=== PATIENT | male | born 1985 | race African-American/Black ===

== ENCOUNTER 2018-05-11 12:35 | Emergency (ER) | payer OTHER ==
--- NOTE | 2018-05-11 13:35 | ED ---
GI/ HPI - HPI Summary HPI Summary: This pt is a 33 y/o male presenting to [facility] from [facility] for hematuria and bilateral lower abdominal pain for approximately 1 week now. Pt reports hematuria began on May 02. He notes his abdominal pain is intermittent. Denies fever, vomiting. He had blood tests done yesterday and today, and was referred to the ED for decrease in H&H of 9.1 and 27 today. 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 PMHx includes TBI and CVA. - History of Current Complaint Chief Complaint: EDAbdPain Time Seen by Provider: 05/11/18 13:19 Stated Complaint: BLOOD IN URINE Hx Obtained From: Patient Onset/Duration: Started Weeks Ago, Still Present Timing: Lasting Weeks Current Severity: Moderate Pain Intensity: 8 - bilateral lower abd Associated Signs and Symptoms: Positive: Hematuria, Abdominal Pain. Negative: Vomiting, Fever Aggravating Factor(s): Nothing Alleviating Factor(s): Nothing - Risk Factors GI Bleed Risk Factor(s): Coumadin - Allergy/Home Medications Allergies/Adverse Reactions: Allergies Allergy/AdvReac Type Severity Reaction Status Date / Time No Known Allergies Allergy Verified 05/11/18 12:41 Home Medications: Home Medications Azithromycin TAB* [Zithromax TAB (Z-ERINN) 250 mg #6 tabs] 2 tab PO .TODAY, THEN 1 DAILY 05/11/18 [History Confirmed 05/11/18] Docusate CAP* [Colace Cap*] 100 mg PO BID 05/11/18 [History Confirmed 05/11/18] Ethambutol TAB* [Myambutol TAB*] 400 mg PO MOWEFR 05/11/18 [History Confirmed ] Isosorbide Mononitrate ER TAB* [Imdur ER TAB*] 30 mg PO DAILY 05/11/18 [History Confirmed 05/11/18] Lisinopril TAB* [Prinivil TAB*] 5 mg PO DAILY 05/11/18 [History Confirmed ] Metoprolol Tartrate TAB* [Lopressor TAB*] 50 mg PO BID 05/11/18 [History Confirmed 05/11/18] Phenytoin CAP(*) [Dilantin CAP(*)] 100 mg PO BID 05/11/18 [History Confirmed 08/19] Pravastatin (NF) [Pravachol (NF)] 10 mg PO DAILY 05/11/18 [History Confirmed 08/19] Ranitidine TAB (NF) [Zantac TAB (NF)] 150 mg PO BID 05/11/18 [History Confirmed 05/11/18] RiFAMPin CAP* 600 mg PO MOWEFR 05/11/18 [History Confirmed 05/11/18] Warfarin TAB(*) [Coumadin TAB(*)] 5 mg PO DAILY 05/11/18 [History Confirmed 08/19] PMH/Surg Hx/FS Hx/Imm Hx Endocrine/Hematology History: Denies: Hx Diabetes Cardiovascular History: Reports: Hx Deep Vein Thrombosis, Hx Hypertension Neurological History: Reports: Hx Seizures, Other Neuro Impairments/Disorders - TBI Infectious Disease History: No Infectious Disease History: Denies: Traveled Outside the [place] in Last 30 Days - Family History Known Family History: Negative: Cardiac Disease - Social History Alcohol Use: None Substance Use Type: Reports: None Smoking Status (MU): Never Smoked Tobacco Review of Systems Negative: Fever, Chills ENT: Negative Cardiovascular: Negative Positive: Abdominal Pain. Negative: Vomiting Positive: hematuria All Other Systems Reviewed And Are Negative: Yes Physical Exam - Summary Physical Exam Summary: Appearance: The patient is well-nourished in no acute distress and in no acute pain. Skin: The skin is warm and dry and skin color reflects adequate perfusion. HEENT: The head is normocephalic and atraumatic. The pupils are equal and reactive. The conjunctivae are clear and without drainage. Nares are patent and without drainage. Mouth reveals moist mucous membranes and the throat is without erythema and exudate. The external ears are intact. Neck: the neck is supple with full range of motion and non-tender. There are no carotid bruits. There is no neck vein distension. Respiratory: Chest is non-tender. Lungs are clear to auscultation and breath sounds are symmetrical and equal. Cardiovascular: Heart is regular rate and rhythm. There is no murmur or rub auscultated. There is no peripheral edema and pulses are symmetrical and equal. Abdomen: The abdomen is soft and non-tender. There are normal bowel sounds heard in all four quadrants and there is no organomegaly palpated. Musculoskeletal: There is no back tenderness noted. Extremities are non-tender with full range of motion. There is good capillary refill. There is no peripheral edema or calf tenderness elicited. Neurological: Patient is alert and oriented to person, place and time. Psychiatric: The patient has an appropriate affect and does not exhibit any anxiety or depression. Triage Information Reviewed: Yes Vital Signs On Initial Exam: Initial Vitals Temp Pulse Resp BP Pulse Ox 98.9 F 80 16 83/45 99 05/11/18 12:39 05/11/18 12:39 05/11/18 12:39 05/11/18 12:39 05/11/18 12:39 Vital Signs Reviewed: Yes Diagnostics - Vital Signs Vital Signs Temp Pulse Resp BP Pulse Ox 05/11/18 12:39 98.9 F 80 16 83/45 99 - Laboratory Result Diagrams: 05/11/18 13:53 05/11/18 13:53 Lab Statement: Any lab studies that have been ordered have been reviewed, and results considered in the medical decision making process. - Ultrasound No standard instances Ultrasound Interpretation: Positive (See Comments) - Renal US IMPRESSION: Mlid left hydronephrosis. No ureteral jets are noted. Dr. Israel has reviewed this radiology report. Ultrasound Interpretation Completed By: Radiologist JAHAIRA Course/Dx - Course Course Of Treatment: Mr. Coello presented with a concern for gross hematuria and anticoagulation status. He is on warfarin for recurrent DVTs and his INR yesterday was 2. He has had gross hematuria for a few days and his H&H was 9 and 27 yesterday. This is reportedly lower than previous although we do not have those records. Nor do we have records as to why he has recurrent DVTs. His vitals are stable here. He is H&H is not changed much at 8.7 and 27. And his INR still 2. Ultrasound of his kidneys and bladder show no ureteral jets and mild hydronephrosis on the right. I discussed situation with Dr. Horne who felt that this needed more workup at that that could occur as an outpatient. His UA showed no sign of infection but did show the blood. Dr. Horne recommended a repeat CBC tomorrow and follow up with urology with more comprehensive past medical history records. - Diagnoses Provider Diagnoses: Gross hematuria - Physician Notifications Discussed Care Of Patient With: Johnny Serra Time Discussed With Above Provider: 18:21 Instructed by Provider To: Other - I discussed pt care with Dr. Hamilton, hospitalist. [18:39] I discussed with Dr. Alonso, urologist, who will follow up with pt as an outpatient. Discharge - Sign-Out/Discharge Documenting (check all that apply): Patient Departure - Discharge - Discharge Plan Patient Education Materials: Hematuria (ED) Referrals: Chad Alonso MD [Medical Doctor] - Additional Instructions: Repeat CBC lab work in 24 hours. Please follow up with Dr. Alonso, urologist. RETURN TO THE ED FOR ANY WORSENING SYMPTOMS.
[2018-05-11 14:05] LABS: ABS Basophils 0 10^3/ul (0-0.2); ABS Eosinophils 0.1 10^3/ul (0-0.6); ABS Lymphocytes 1.2 10^3/ul (1.0-4.8); ABS Monocytes 1.1 10^3/ul (0-0.8); ABS Nucleated RBC 0 10^3/ul; Hematocrit 27 % (42-52); Hemoglobin 8.7 g/dl (14.0-18.0); Lymphocyte % 19.3 % (25-47); Mean Corpuscular HGB Conc 33 g/dl (31-36); Mean Corpuscular Hemoglobin 29 pg (27-31); Mean Corpuscular Volume 87 fL (80-94); Mean Platelet Volume 8.2 um3 (7.4-10.4); Nucleated Red Blood Cells % 0.1; Platelet Count 271 10^3/ul (150-450); Red Blood Count 3.05 10^6/ul (4.00-5.40); Red Cell Distribution Width 13 % (10.5-15); White Blood Count 6.5 10^3/ul (3.5-10.8)
[2018-05-11] MEDS ORDERED: NS 0.9% 1000 ML* 1,000 ML IV ONE (14:08)
[2018-05-11 14:20] LABS: INR 2.15 (0.77-1.02)
[2018-05-11 14:31] LABS: EGFR Non-African American 54.3 (>60)
[2018-05-11] MEDS ORDERED: Ciprofloxacin 400MG IVPREMIX(* 400 MG/200 ML BAG IVPB ONE (14:50)
[2018-05-11 16:01] LABS: Urine Appearance Cloudy; Urine Blood 3+ (Negative); Urine Color Amber; Urine Ketones Negative (Negative); Urine Protein Negative (Negative); Urine Red Blood Cell 3+(>10/hpf) (Absent); Urine Specific Gravity 1.014 (1.010-1.030); Urine Urobilinogen Negative (Negative); Urine White Blood Cell 2+(11-20/hpf) (Absent)
--- NOTE | 2018-05-11 18:09 | RAD ---
Indication: Hematuria. Real-time sonography of the kidneys was performed. The right kidney measures 12.9 x 6.7 x 7.8 cm. No hydronephrosis is noted. The left kidney measures 14.4 x 8.1 x 7.3 cm with mild left hydronephrosis. Evaluation of the urinary bladder demonstrates no ureteral jets. IMPRESSION: Mild left hydronephrosis. No ureteral jets are noted.
[2018-05-11 19:23] VITALS: BP 102/59
== END 2018-05-11 19:22 | disposition home or self-care (01) ==
LOC: ED 12:35
DX: R31.0 Gross hematuria (principal); R10.9 Unspecified abdominal pain; Z79.01 Long term (current) use of anticoagulants; Z86.73 Personal history of transient ischemic attack (TIA), and cerebral infarction without residual deficits
CPT/HCPCS: 36415; 76775; 80053; 80185; 81003; 85025; 85610; 86850; 86900; 86901; 96361; 96365; 99282; J0744

== ENCOUNTER → 2018-12-15 16:43 | Emergency (ER) | payer OTHER ==
[~2018-12-15 16:43] MED LIST: Oxymetazoline 0.05% NASAL SPR* 15 ML BTL ONE; Phytonadione Oral Solution* 5 MG/25 ML UDC PO ONE
[2018-12-15 17:07] VITALS: BP 136/79
--- NOTE | 2018-12-15 17:18 | ED ---
Complex/Multi-Sys Presentation - HPI Summary HPI Summary: Pt is a 33 y/o male brought in by police who presents to the ED c/o elevated INR. He was sent from [facility] with elevated INR or 9.38. Pt has been on Coumadin preventively since he has been wheelchair-bound, due to his right leg sciatica. [facility] states that they dont have Vitamin K at the facility and request the pt receive this in the ED. Pt notes hes had epistaxis for the past 3 days, and a scab on the back of his neck fell off today and was bleeding. He denies any black stool or hematemesis. He denies any recent extra doses of Coumadin, or recent antibiotics. - History Of Current Complaint Time Seen by Provider: 12/15/18 16:44 Hx Obtained From: Patient Onset/Duration: Gradual Onset, Lasting Days - 3, Still Present Timing: Intermittent, Lasting: Location: Negative Aggravating Factor(s): Coumadin Alleviating Factor(s): Nothing Associated Signs And Symptoms: Negative: Hematemesis - Allergies/Home Medications Allergies/Adverse Reactions: Allergies Allergy/AdvReac Type Severity Reaction Status Date / Time No Known Allergies Allergy Verified 05/11/18 12:41 PMH/Surg Hx/FS Hx/Imm Hx Endocrine/Hematology History: Denies: Hx Diabetes Cardiovascular History: Reports: Hx Deep Vein Thrombosis, Hx Hypertension Neurological History: Reports: Hx Seizures, Other Neuro Impairments/Disorders - TBI Infectious Disease History: No Infectious Disease History: Denies: Traveled Outside the [place] in Last 30 Days - Family History Known Family History: Negative: Cardiac Disease - Social History Alcohol Use: None Hx Substance Use: No Substance Use Type: Reports: None Hx Tobacco Use: No Smoking Status (MU): Never Smoked Tobacco Review of Systems Positive: Epistaxis Negative: Other - black stool, hematemesis Positive: Other - bleeding scab All Other Systems Reviewed And Are Negative: Yes Physical Exam - Summary Physical Exam Summary: Appearance: Well appearing, no pain distress Skin: warm, dry, reflects adequate perfusion, dried blood on back of neck Head/face: normal Eyes: EOMI, JU ENT: mucous membranes moist, minimal dried blood in right nare Neck: supple, non-tender Respiratory: CTA, breath sounds present Cardiovascular: RRR, pulses symmetrical Abdomen: non-tender, soft Bowel Sounds: present Musculoskeletal: normal, strength/ROM intact Neuro: normal, sensory motor intact, A&Ox3 Triage Information Reviewed: Yes Vital Signs On Initial Exam: Initial Vitals Temp Pulse Resp BP Pulse Ox 98.7 F 74 18 136/79 96 12/15/18 16:50 12/15/18 16:50 12/15/18 16:50 12/15/18 16:50 12/15/18 16:50 Vital Signs Reviewed: Yes Diagnostics - Vital Signs Vital Signs Temp Pulse Resp BP Pulse Ox 12/15/18 16:50 98.7 F 74 18 136/79 96 - Laboratory Lab Statement: Any lab studies that have been ordered have been reviewed, and results considered in the medical decision making process. Complex Multi-Symp Course/Dx Course Of Treatment: Nurse's notes reviewed. Patient is currently asymptomatic with no active bleeding. He did have minor bleeding from the right naris earlier and shows signs of dried blood there. There is also blood on his collar for more he picked at a scab. He is encouraged to not do this and was given Afrin and then knows to tried to lexa any bleeding from recurring. He was given vitamin K here 2.5 mg orally. He will be held in his Coumadin dose for the next 2 days or until he is back in normal range. I've also suggested that he remain in protective custody such that he does not sustain any injury and that they consider either discontinuing his anticoagulant therapy entirely or replace it with a new or oral anticoagulant. This is explained to the patient and assisted guards who understand. Additionally, written report was provided to assisted medical staff. This is treatment per protocol for INR of between 4.5 and 10. - Diagnoses Provider Diagnoses: Elevated INR Discharge - Sign-Out/Discharge Documenting (check all that apply): Patient Departure - Discharge Patient Received Moderate/Deep Sedation with Procedure: No - Discharge Plan Condition: Stable Disposition: LAW ENFORCEMENT/COURT Patient Education Materials: Elevated INR (ED) Referrals: No Primary Care Phys,NOPCP [Medical Doctor] - Additional Instructions: 1. Remain in protective custody until INR in normal range. 2. It may be odell to discontinue warfarin in favor of new oral anticoagulants such as Xarelto or Eliquis 3. Return to the ER with uncontrolled bleeding, vomiting blood, blood in the stool, worse or other concerns 4. Repeat INR daily until within normal range 5. If patient experiences minor nosebleeding Afrin can be used to stop it. 6. Follow-up with assisted medical in the morning. - Billing Disposition and Condition Condition: STABLE Disposition: Law Enforcement/Court - Attestation Statements Document Initiated by Eric: Yes Documenting Scribe: Sarah Cuba Provider For Whom Eric is Documenting (Include Credential): Elmo Chiang MD Scribe Attestation: Sarah Dover, scribed for Elmo Chiang MD on 12/15/18 at 1726. Scribe Documentation Reviewed: Yes Provider Attestation: The documentation as recorded by the Sarah morton accurately reflects the service I personally performed and the decisions made by , Elmo Chiang MD Status of Scribe Document: Viewed
== END ==
LOC: ED 16:43
DX: R79.1 Abnormal coagulation profile (principal); R04.0 Epistaxis; Z79.01 Long term (current) use of anticoagulants
CPT/HCPCS: 99282; A9270-GY

== ENCOUNTER 2021-06-10 13:26 | Inpatient (IN) ==
[2021-06-10] MEDS ORDERED: Acetaminophen IV 1 GM/100ML 100 ML IV ONE (16:00)
[2021-06-10] MEDS ORDERED: Lactated Ringers 1000 ml BAG 1,000 ML IV ONE (16:00)
[2021-06-10 16:01] LABS: ABS Basophils 0.1 10^3/ul (0-0.2); ABS Eosinophils 0.1 10^3/ul (0-0.6); ABS Lymphocytes 2.7 10^3/ul (1.0-4.8); ABS Monocytes 0.7 10^3/ul (0-0.8); ABS Neutrophils 2.3 10^3/ul (1.5-7.7); Eosinophil % 1.1 %; Hematocrit 33 % (42-52); Hemoglobin 10.4 g/dL (14.0-18.0); Lymphocyte % 46.6 %; Mean Corpuscular HGB Conc 32 g/dL (31-36); Mean Corpuscular Hemoglobin 26 pg (27-31); Mean Corpuscular Volume 81 fL (80-94); Mean Platelet Volume 8.4 fL (7.4-10.4); Platelet Count 202 10^3/uL (150-450); Red Blood Count 4.02 10^6 /uL (4.18-5.48); Red Cell Distribution Width 15 % (10-15); White Blood Count 5.8 10^3/uL (3.5-10.8)
[2021-06-10 16:43] LABS: Albumin 4.4 g/dL (3.2-5.2); Albumin/Globulin Ratio 1.3 (1-3); Calcium 9.3 mg/dL (8.6-10.3); EGFR African American 46.5 (>60); EGFR Non-African American 38.4 (>60); Globulin 3.4 g/dL (2-4); Magnesium 1.8 mg/dL (1.9-2.7); Phosphorus 3.5 mg/dL (2.5-5.0); Total Bilirubin 0.6 mg/dL (0.2-1.0); Total Protein 7.8 g/dL (6.4-8.9)
[2021-06-10 16:58] LABS: Urine Appearance Cloudy; Urine Bilirubin Negative (Negative); Urine Blood Negative (Negative); Urine Color Yellow; Urine Glucose Negative (Negative); Urine Ketones Negative (Negative); Urine Nitrite Negative (Negative); Urine Protein Negative (Negative); Urine Specific Gravity 1.021 (1.002-1.030); Urine Urobilinogen Negative (Negative)
[2021-06-10] MEDS ORDERED: CALCIUM GLUCONATE 1GM/50ML NS 1 GM/50 ML BAG IV ONE (17:11)
[2021-06-10] MEDS ORDERED: Dextrose 50% Syringe 50 ml 25 GM/50 ML SYRINGE IV PUSH ONE (17:11)
[2021-06-10 17:20] LABS: Potassium 6.2 mmol/L (3.5-5.0)
[2021-06-10] MEDS ORDERED: Sodium Polystyrene ORAL.SUSP 15 GM/60 ML BTL PO ONE (17:55)
[2021-06-10] MEDS ORDERED: NS 0.9% 1000 ml BAG 1,000 ML IV ONE (21:07)
[2021-06-11 01:51] LABS: Calcium 8.7 mg/dL (8.6-10.3); EGFR African American 56.2 (>60); EGFR Non-African American 46.5 (>60); Potassium 4.9 mmol/L (3.5-5.0)
[2021-06-11 04:51] LABS: Urine Creatinine Concentration 199.32 mg/dL; Urine Potassium Concentration 62.6 mmol/L
[2021-06-11 05:45] LABS: Urine Benzodiazepine Screen None Detected (None Detect); Urine Cannabinoids Screen None Detected (None Detect); Urine Opiates Screen None Detected (None Detect)
[2021-06-11] MEDS ORDERED: Lactated Ringers 1000 ml BAG 1,000 ML IV ONE (08:26)
[2021-06-11 09:10] LABS: CO2 Carbon Dioxide 16 mmol/L (22-32); Calcium 8.4 mg/dL (8.6-10.3); Chloride 107 mmol/L (101-111); Sodium 132 mmol/L (135-145)
[2021-06-11 09:15] LABS: Blood Urea Nitrogen 42 mg/dL (6-24); EGFR African American 57.4 (>60); EGFR Non-African American 47.4 (>60); Glucose 89 mg/dL (70-100); Lipase 67 U/L (11.0-82.0)
[2021-06-11 09:50] LABS: Anion Gap 9 mmol/L (2-11)
[2021-06-11 22:00] LABS: Hematocrit 28 % (42-52); Hemoglobin 9.3 g/dL (14.0-18.0); Mean Corpuscular HGB Conc 33 g/dL (31-36); Mean Corpuscular Hemoglobin 26 pg (27-31); Mean Corpuscular Volume 80 fL (80-94); Platelet Count 147 10^3/uL (150-450); Red Cell Distribution Width 14 % (10-15); White Blood Count 4.6 10^3/uL (3.5-10.8)
[2021-06-11 22:16] LABS: Magnesium 1.3 mg/dL (1.9-2.7); Potassium Redraw 3.9 mmol/L (3.5-5.0)
[2021-06-11 22:46] LABS: INR 1.21 (0.86-1.15)
[2021-06-12 04:44] LABS: ABS Eosinophils 0.1 10^3/ul (0-0.6); ABS Lymphocytes 2.2 10^3/ul (1.0-4.8); ABS Monocytes 0.7 10^3/ul (0-0.8); Eosinophil % 1.5 %; Hematocrit 31 % (42-52); Lymphocyte % 43.5 %; Mean Corpuscular HGB Conc 32 g/dL (31-36); Mean Corpuscular Hemoglobin 26 pg (27-31); Mean Corpuscular Volume 81 fL (80-94); Mean Platelet Volume 8.6 fL (7.4-10.4); Nucleated Red Blood Cells % 0.1; Platelet Count 183 10^3/uL (150-450); Red Blood Count 3.85 10^6 /uL (4.18-5.48); Red Cell Distribution Width 14 % (10-15)
[2021-06-12 05:02] LABS: Albumin 3.7 g/dL (3.2-5.2); Albumin/Globulin Ratio 1.3 (1-3); Calcium 8.5 mg/dL (8.6-10.3); EGFR African American 69.4 (>60); EGFR Non-African American 57.3 (>60); Globulin 2.9 g/dL (2-4); Magnesium 1.6 mg/dL (1.9-2.7); Potassium 4.3 mmol/L (3.5-5.0); Total Bilirubin 0.3 mg/dL (0.2-1.0); Total Protein 6.6 g/dL (6.4-8.9)
[2021-06-12] MEDS ORDERED: Lactated Ringers 500 ml BAG 500 ML IV ONE (06:41)
[2021-06-12 12:05] VITALS: BP 121/70
== END 2021-06-12 13:20 | DRG 469 ==
LOC: ED 13:26 → MED 21:47
PROVIDERS: ADMIT Internal Medicine; ATTEND Hospitalist